=== PATIENT | male | born 1940 | race Caucasian/White ===

== ENCOUNTER 2016-09-08 18:29 | Emergency (ER) | payer OTHER, BC ==
[2016-09-08 18:42] VITALS: TEMP 97.5; O2SAT 91
--- NOTE | 2016-09-08 19:03 | EDPHY ---
HPI/HX/ROS/PE/MDM Narrative: CHIEF COMPLAINT: Bilateral calf aching. HPI: The patient is a 76-year-old male with a history of atrial fibrillation who presents with a week of bilateral aching in his calves. The aching has been constant over that period of time. The pain has started to cause him difficulty walking and is worsened with any movement. He does not have pain while lying in bed or standing still. Th pain is equal in both legs. He denies chest pain, shortness of breath, peripheral edema, or other complaints. He is not anticoagulated on blood thinners. REVIEW OF SYSTEMS: Aside from elements discussed in the HPI, a comprehensive 10-point review of systems was reviewed and is negative. PMH: Kidney cancer, atrial fibrillation, mitral valve repair and cardiac bypass x1. SOCIAL HISTORY: From [place], [place]. PHYSICAL EXAM: General: Patient is alert, in no acute distress. ENT: Eyes are normal to inspection. ENT inspection normal. Neck: Normal inspection. Full range of motion. Respiratory: No respiratory distress. Breath sounds normal bilaterally. Cardiovascular: Regular rate and rhythm. Strong peripheral pulses. Abdomen: The abdomen is nontender to palpation. There are no peritoneal signs. There are normal bowel sounds. Back: Normal to inspection. No tenderness to palpation. Skin: Normal color. No rash. Warm and dry. Extremities: Normal appearance. Full range of motion. Mild bilateral ankle swelling. Both legs warm. 2+ dorsalis pedis pulses bilaterally. 1+ posterior tibialis pulses bilaterally. Neuro: Oriented x3. Normal motor function. Normal sensory function. Portions of this note were transcribed by an ED scribe. I personally performed the history, physical exam, and medical decision making; and confirm the accuracy of the information in the transcribed note. ED Course: Bilateral lower extremity ultrasounds ordered. Study: Ultrasound of the: calves. Indication: Pain. Results: No DVT. The study was read by the radiologist, Dr. Lo. I viewed the images myself on the PACS system. MDM: This is a patient with multiple co-morbidities including vascular disease who presents with bilateral leg aching, especially with exercise. There is no evidence of DVT in either leg on ultrasound and no signs of infection on exam. His history of symptoms with walking suggests claudication. However, he has great blood flow to both feet with strong peripheral pulses so I see no sign of critical limb ischemia or vascular obstruction. I think the patient will need urgent workup to exclude claudication, but he flies home tomorrow and does not live locally, so he would prefer to get further testing done at home in [place]. General Time Seen by Provider: 09/08/16 18:50 Initial Vital Signs: Initial Vital Signs Temperature (C) 36.4 C 09/08/16 18:35 Heart Rate 103 H 09/08/16 18:35 Respiratory Rate 16 09/08/16 18:35 Blood Pressure 120/70 09/08/16 18:35 O2 Sat (%) 91 L 09/08/16 18:35 O2 Delivery Mode Room Air Allergies/Adverse Reactions: No Known Allergies Allergy (Unverified 09/08/16 18:42) Home Medications: Medication Instructions Recorded Amiodarone HCl 09/08/16 Aspirin 09/08/16 Calcium 09/08/16 Carvedilol 09/08/16 Klor-Con 20 meq (*) 09/08/16 Lasix 09/08/16 Levothyroxine 09/08/16 Lexapro 09/08/16 Lisinopril 09/08/16 Midodrine HCl 09/08/16 Departure - Departure Disposition: Home, Routine, Self-Care Clinical Impression: Calf pain Condition: Good Instructions: Leg Pain (ED) Additional Instructions: Follow up with your doctor when you return home for reevaluation and testing for possible claudication. Return to the emergency department in the meantime for any serious worsening of condition. Referrals: [facility] [Other] - As per Instructions Report Scribed for: Juan Riley Report Scribed by: Dustin Bruner Date of Report: 09/08/16 Time of Report: 18:51
[2016-09-08 20:28] VITALS: BP 113/80; PULSE 76; RESP 18
== END 2016-09-08 20:27 | disposition home or self-care (01) ==
DX: M79.661 Pain in right lower leg (principal); M79.662 Pain in left lower leg